=== PATIENT | male | born 1975 | race Caucasian/White ===

== ENCOUNTER 2022-04-05 12:42 | Emergency (ER) | payer OTHER, SELFPAY ==
--- NOTE | ~2022-04-05 | US_ITS ---
EXAMINATION: US venous doppler [facility] DATE: 04/05/2022 18:48 INDICATION: Left lower limb edema. TECHNIQUE: Grayscale ultrasound images without and with compression and Doppler ultrasound images of the left lower extremity veins were obtained. COMPARISON: None. FINDINGS: The visualized portions of left common femoral vein, profunda (deep) femoral vein, femoral vein, popl iteal vein, peroneal veins, posterior tibial veins, and greater saphenous vein outflow are patent. IMPRESSION: 1. No deep venous thrombosis. Reviewed, dictated and finalized at location A. LTY ADMINISTRATOR
--- NOTE | ~2022-04-05 | XR_ITS ---
EXAMINATION: XR chest 2V 04/05/2022 13:12 INDICATION: Chest pain PROCEDURE: 2 view chest COMPARISON: No prior studies for comparison. FINDINGS: The lungs are clear. The cardiomediastinal silhouette is within normal limits. There are no pleural effusions. There is no pneumothorax suspected. IMPRESSION: 1: NO ACUTE CARDIOPULMONARY DISEASE. Reviewed, dictated and finalized at location B. ECTOR GENERAL
[2022-04-05 12:43] VITALS: BP 174/118; PULSE 103; RESP 14; TEMP 36.7; O2SAT 98
--- NOTE | 2022-04-05 12:57 | ECG_ITS ---
Measurements Intervals [place] Rate: 94 P: 50 FL: 191 QRS: 43 QRSD: 108 T: 48 QT: 339 QTc: 425 Interpretive Statements SINUS RHYTHM NORMAL ECG NO PREVIOUS ECG AVAILABLE FOR COMPARISON Electronically Signed On 04-06-2022 14:06:26 BEAN SNIPPER by Wesley Freeman M.D.
[2022-04-05 13:05] LABS: Basophils Absolute Auto 0.1 K/mm3 (0.0-0.1); Basophils Percent Auto 0.7 % (0.2-1.2); Eosinophils Absolute Auto 0.3 K/mm3 (0-0.3); Eosinophils Percent Auto 3.2 % (0-4.4); Hematocrit 44.8 % (42.0-52.0); Hemoglobin 14.9 g/dL (14.0-18.0); Immature Granulocyte Absolute 0.05 K/mm3 (0.00-0.031); Immature Granulocyte Percent A 0.5 % (0-0.5); Lymphocytes Absolute Auto 2.32 K/mm3 (0.9-3.2); Lymphocytes Percent Auto 24.7 % (18.3-44.2); Mean Corpuscular HGB Conc 33.3 g/dl (32-36); Mean Corpuscular Hemoglobin 30.6 pg (26-34); Mean Platelet Volume 9.8 fl (7.4-10.4); Monocytes Absolute Auto 0.8 K/mm3 (0.1-0.6); Monocytes Percent Auto 8.9 % (2.6-8.5); Neutrophils Absolute Auto 5.8 K/mm3 (1.3-6.7); Platelet Count Result 239 k/mm3 (150-375); Red Blood Count 4.87 M/mm3 (4.6-6.20); Red Cell Distribution Width 13.7 % (11.5-14.5); White Blood Count 9.4 K/mm3 (4.5-10.0)
[2022-04-05 13:20] LABS: Alanine Aminotransferase 30 U/L (6-50); Albumin Level 4.6 g/dL (3.5-5.1); Alkaline Phosphatase 82 U/L (38-126); Anion Gap 7 mmol/L (8-16); Aspartate Amino Transferase 30 U/L (17-59); Bilirubin,Total 0.5 mg/dL (0.2-1.3); Blood Urea Nitrogen 17 mg/dL (9-20); Calcium 8.5 mg/dL (8.4-10.2); Carbon Dioxide 25 mmol/L (22-30); Chloride 102 mmol/L (98-107); Estimated CRCL calculation 174 ml/min; Estimated Glomerular Filt Rate > 60; Glucose 106 mg/dL (65-110); Lipase 107 U/L (23-300); Potassium 4.3 mmol/L (3.4-5.0); Sodium 134 mmol/L (137-145)
[2022-04-05 13:31] LABS: Troponin I < 0.012 ng/mL (0.000-0.034)
[2022-04-05 17:09] LABS: Troponin I < 0.012 ng/mL (0.000-0.034)
[2022-04-05 17:30] VITALS: BP 187/100; PULSE 92; RESP 16; O2SAT 96
[2022-04-05 17:38] VITALS: PULSE 88
--- NOTE | 2022-04-05 18:46 | ED.CHESTPAIN ---
HPI - Chest Pain General Chief Complaint: Chest Pain Stated Complaint: Chest pain Time Seen by Provider: 04/05/22 18:20 History of Present Illness HPI narrative: Patient is a 46-year-old male who presents ER with back pain. Right-sided and between the scapula and the spine. Ongoing over the last 2 weeks. Improves if he massages it against a door frame. Mild improvement with anti-inflammatories at times. Is started to worsen and affects his right chest as well as his right arm. Is worse with physical movement and not necessarily with exertion. No fevers chills or sweats. Also reports that he has no edema in his legs. He started a new job where he is up and ambulatory more than he used to be. The left leg has begun to swell despite having history of chronic edema and using his compression socks. Recently moved to the area and does not have a PCP and would like to be evaluated. Related Data Allergies Allergy/AdvReac Type Severity Reaction Status Date / Time No Known Allergies Allergy Verified 04/05/22 17:21 Review of Systems Review of Systems: All systems reviewed & are unremarkable except as noted in HPI and below Constitutional: Constitutional: Denies chills, Denies fatigue and Denies fever(s) ENT: Denies nasal congestion and Denies sore throat Cardiovascular: Cardiovascular: Denies chest pain, Denies rapid heart rate and Denies radiating jaw, neck or arm pain Respiratory: Respiratory: Denies cough and Denies dyspnea Gastrointestinal: Gastrointestinal: Denies abdominal pain, Denies nausea and Denies vomiting Musculoskeletal: Musculoskeletal: Reports back pain, Denies arthralgias and Denies joint swelling Comments: Leg edema PMFSH Past Medical History Medical History (Updated 04/05/22 @ 19:54 by Yandel Villalba MD) Hypertension Surgical History Surgical History (Updated 04/05/22 @ 19:54 by Yandel Villalba MD) No pertinent past surgical history Exam Narrative: GENERAL: Well-appearing, morbidly obese, and in no acute distress. HEAD: Normocephalic, atraumatic. EYES: PERRL and EOMI. ENT: Mucous membranes moist. CHEST: Clear to auscultation. No respiratory distress. HEART: Regular rate and rhythm. Normal peripheral pulses. ABDOMEN: Soft, nontender, nondistended, normal active bowel sounds. Back: No reproducible midline tenderness of the T/L-spine. There is muscle tenderness and spasm located over the rhombus on the right side which reproduces patient's pain. EXTREMITIES: Normal range of motion. 2+ edema with chronic venous stasis changes. NEURO: Alert and oriented x3. PSYCH: Normal mood and affect. Course Course Emergency Course: No DVT on ultrasound. Troponins negative x2 with reassuring EKG and history. Recommend follow-up with PCP and we will give him the name of a local physician. Patient verbalized understanding of treatment plan. Discharged with anti-inflammatories and muscle relaxers. Vital Signs Vital signs: Vital Signs Temperature 98.0 F 04/05/22 12:43 Pulse Rate 103 H 04/05/22 12:43 Respiratory Rate 14 04/05/22 12:43 Blood Pressure 174/118 H 04/05/22 12:43 Pulse Oximetry 98 04/05/22 12:43 Temperature 98.0 F 04/05/22 12:43 Pulse Rate 80 04/05/22 18:59 Respiratory Rate 15 04/05/22 18:59 Blood Pressure 165/109 H 04/05/22 18:59 Pulse Oximetry 97 04/05/22 18:59 MDM - Chest Pain Lab Data 04/05/22 12:58 04/05/22 12:58 Labs: Lab Results 04/05/22 04/05/22 04/05/22 Range/Units 12:58 12:58 12:58 WBC 9.4 (4.5-10.0) K/mm3 RBC 4.87 (4.6-6.20) M/mm3 Hgb 14.9 (14.0-18.0) g/dL Hct 44.8 (42.0-52.0) % MCV 92.0 (80-100) fl MCH 30.6 (26-34) pg MCHC 33.3 (32-36) g/dl RDW 13.7 (11.5-14.5) % Plt Count 239 (150-375) k/mm3 MPV 9.8 (7.4-10.4) fl Immature Gran % (Auto) 0.5 (0-0.5) % Neut % (Auto) 62.0 (45.5-73.1) % Lymph % (Auto) 24.7 (18.3-44.2) % [place] %
[2022-04-05 18:59] VITALS: BP 165/109; PULSE 80; RESP 15; O2SAT 97
== END 2022-04-05 19:17 | disposition home or self-care (01) ==
PROVIDERS: Emergency Provider Emergency Medicine
DX: S29.012A Strain of muscle and tendon of back wall of thorax, initial encounter (principal); I10 Essential (primary) hypertension; R60.0 Localized edema; X58.XXXA Exposure to other specified factors, initial encounter
CPT/HCPCS: 36415; 71046; 80053; 83690; 84484; 85025; 85610; 85730; 93005; 93971; 99284

== ENCOUNTER 2023-09-11 16:24 | Emergency (ER) | payer OTHER, SELFPAY ==
[2023-09-11 16:42] VITALS: BP 149/106; PULSE 101; RESP 16; TEMP 37.8; O2SAT 98
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
== END 2023-09-11 17:17 | disposition left against medical advice (07) ==
PROVIDERS: Emergency Provider Nurse Practitioner; PCP Family Medicine
DX: S20.213A Contusion of bilateral front wall of thorax, initial encounter (principal); V43.52XA Car driver injured in collision with other type car in traffic accident, initial encounter; M79.671 Pain in right foot; F17.220 Nicotine dependence, chewing tobacco, uncomplicated; I10 Essential (primary) hypertension
CPT/HCPCS: 99212; G0463

== ENCOUNTER 2024-09-17 01:14 | Day surgery (SDC) | payer OTHER, SELFPAY ==
[2024-09-07 11:28] VITALS: BMI 49.0
--- OUTSIDE RECORDS SUMMARY | 2024-09-17 01:17 | XMS_ITS | Referral Summary ---
Author Organization [facility] Address [address] [place] [address] Care Team Providers Care Education Analyst Name Role Phone No, Physician Primary Care Provider [phone] Allergies No known active allergies Medications ibuprofen (ADVIL,MOTRIN) 600 mg tablet Take 1 tablet (600 mg total) by mouth every 8 (eight) hours as needed for pain 30 tablet 09/13/2023 Active acetaminophen (TYLENOL) 500 mg tablet Take 1-2 tablets (500-1,000 mg total) by mouth every 6 (six) hours as needed for pain 30 tablet 09/13/2023 Active Active Problems Problem Noted Date Diagnosed Date Displaced fracture of fifth metatarsal bone of r ight foot 10/12/2023 Social History Tobacco Use Types Packs/Day Years Used Date Smoking Tobacco: Never Smokeless Tobacco: Current Tobacco Cessation:Ready to Q uit: Not Asked; Counseling Given: Not Answered Alcohol Use Standard Drinks/Week Comments Yes 0 (1 standard drink = 0.6 oz pur e alcohol) Drinks multiple times per week Personal Safety Answer Date Recorded Have you ever been in or are you currently in a harmful physical or emotional relationship or is someone making you feel afraid or unsafe? Denies 09/12/2023 Sex and Gender Information Value Date Recorded Sex Assigned at Not on file Legal Sex Male 7:50 PM CDT Gender Identity Not on file Sexual Orientation Not on file Last Filed Vital Signs Vital Sign Reading Time Taken Comments Blood Pressure 142/90 09/13/2023 8:00 AM CDT Pulse 84 09/13/2023 8:15 AM CDT Temperature 37 C (98.6 F) 09/13/2023 3:15 AM CDT Respiratory Rate 18 09/13/2023 3:15 AM CDT Oxygen Saturation 96% 09/13/2023 8:15 AM CDT Inhaled Oxygen Concentration - - Weight - - Height - - Body Mass Index - - Plan of Treatment Not on file Insurance Care Teams Education Analyst Relationship Specialty Start Date End Date No, Physician PCP - General 09/13/23
--- OUTSIDE RECORDS SUMMARY | 2024-09-17 01:17 | XMS_ITS | Clinical Summary ---
Author Organization [facility] Address [address] [place] [address] Care Team Providers Care Mining And Quarrying Machinery Repairer Name Role Phone No, Physician Primary Care Provider [phone] Allergies No known active allergies Medications ibuprofen [...] metatarsal bone of r ight foot 10/12/2023 Medical History Medical History Date Comments HTN (hypertension) Social History Tobacco Use Types Packs/Day Years [...] on file Sexual Orientation Not on file Obstetrics History Last Filed Vital Signs Vital Sign Reading [...] Mass Index - - Plan of Treatment Health Maintenance Due Date Last Done Comments Colon Cancer Screening-Colonoscopy 1976 Depression Screening 1976 Hepatitis C Screening 1976 DTaP/Tdap/Td Vaccine (1 - Tdap) 06/15/1987 Hepatitis B Screening 1994 Regular Well Visit/Exam 18-64 1994 Influenza Vaccine (#1) 2024 01/28/2020 Pneumococcal vaccine <65 Aged Out No longer eligible based on patient's age to complete this topic Insurance [facility] CHOICE PLUS Care Teams Mining And Quarrying Machinery Repairer Relationship Specialty Start Date End Date No, Physician PCP - General 09/13/23
--- OUTSIDE RECORDS SUMMARY | 2024-09-17 01:17 | XMS_ITS | Clinical Summary ---
Author Organization [facility] [address] [facility] Address [address] [place] [address] Care Team Providers Care Roustabout Supervisor Name Role Phone Unavailable Primary Care Provider Unavailabl e Allergies Active Allergy Reactions Criticality Noted Date Comments Codeine Nausea and Vomiting Low 10/03/2015 Medications amLODIPine (NORVASC) 10 mg tablet Take 10 mg by mouth daily. 4 Active irbesartan-hyd roCHLOROthiazi de (AVALIDE) 300-12.5 mg tablet Take 1 Tablet by mouth daily. 4 Active cpap infertility medical assistant CPAP @11 cwp with heated humidifier. Length of need:99 months; full face mask with headgear every 6 months; mask only every 3 months; per insurance cushions per month; Tubing non heated 1 every 3 months, water chamber 1 every 6 months, chin strap 1 every 6 months, filters disposable 2 per month, filters reusable 1 per 6 months. Current unit is dysfunctional and is benefiting. 1 Each 4 Active Active Problems Problem Noted Date Diagnosed Date MELIDA (obstructive sleep apnea) 11/22/2023 Encounters Date Type Department Care Team Description 07/17/2024 External Device Data [facility] ABSTRACTION Provider, Abstract 07/04/2024 External Device Data [facility] ABSTRACTION Provider, Abstract 07/03/2024 External Device Data [facility] ABSTRACTION Provider, Abstract from Last 3 Months Social History Tobacco Use Types Packs/Day Years Used Date Smoking Tobacco: Never Smokeless Tobacco: Current Chew Tobacco Cessation:Ready to Q uit: Not Asked; Counseling Given: Not Answered Alcohol Use Standard Drinks/Week Comments Yes 12 (1 standard drink = 0.6 oz pu re alcohol) Sex and Gender Information Value Date Recorded Sex Assigned at Not on file Legal Sex Male 8:16 AM CDT Gender Identity Not on file Sexual Orientation Not on file Last Filed Vital Signs Vital Sign Reading Time Taken Comments Blood Pressure 152/84 11/22/2023 10:24 AM CDT Pulse 79 11/22/2023 10:24 AM CDT Temperature - - Respiratory Rate 18 11/22/2023 10:24 AM CDT Oxygen Saturation 95% 11/22/2023 10:24 AM CDT Inhaled Oxygen Concentration - - Weight 157.9 kg (348 lb) 11/22/2023 10:24 AM CDT Height 177.8 cm (5' 10) 11/22/2023 10:24 AM CDT Body Mass Index 49.93 11/22/2023 10:24 AM CDT Plan of Treatment Health Maintenance Due Date Last Done Comments Pre-Diabetes and Diabetes Screening 1976 HEPATITIS B VACCINES (1 of 3 - 19+ 3-dose series) 06/15/1995 COLORECTAL SCREENING 2021 Colorectal Cancer Screening 2021 FIT-DNA Q 3 years 2021 FIT/FOBT Q 1 year 2021 Flex Sig/CT Colonography Q 5 years 2021 INFLUENZA VACCINE (#1) 2024 01/28/2020, 2019 DTAP/TDAP/TD VACCINES (2 - Td or Tdap) 02/17/2025
--- NOTE | 2024-09-17 07:19 | WPDANESEPPF ---
Anes - Initial Pre Proc Eval Procedure: Operation Date: 09/17/24 08:30 Proposed Procedures p Screening Colonoscopy - Braulio Brown MD Date/Time: 09/17/24 07:19 Surgeon: Braulio Brown MD Pre Op Diagnosis: Encounter for screening for malignant neoplasm of Patient Data Age: 49 Gender: M Height: 1.78 m Weight: 155 kg Allergies Allergy/AdvReac Type Severity Reaction Status Date / Time No Known Allergies Allergy Verified 09/17/24 07:22 Home Medications ?Medication ?Instructions ?Recorded ?Confirmed ?Type irbesartan 300 1 tablet PO DAILY #90 tabs 04/02/24 09/17/24 Rx mg-hydrochlorothiazide 12.5 mg tablet testosterone cypionate 200 mg/mL 200 mg IM WEEKLY #10 mL 04/02/24 09/07/24 Rx intramuscular oil amlodipine 10 mg tablet 10 mg PO QPM #90 tabs 08/10/24 09/17/24 Rx Patient hx anesthesia problems: none Family hx anesthesia problems: none Results Review: All pre-operative results and documents have been reviewed as part of the pre-operative evaluation. [facility] Past Medical History Medical History (Updated 09/17/24 @ 07:19 by Ankur Ba DO) Alcohol abuse Obstructive sleep apnea Hypertension Surgical History Surgical History No pertinent past surgical history Family History Family History Father Alcoholism in family Mother Diabetes mellitus Other Depression Social History Social History Social History: Years smoked: 30 Smoking status: Smoker, status unknown (chewing tobacco) Tobacco type: smokeless tobacco Smokeless tobacco user: chewing tobacco Alcohol intake: current Drinks per week: 12 Substance use: never Substance use type: does not use Do You Feel Safe in your Home?: Yes Lack of Transportation: No Lack of Food: Never True Current Housing: I Have Housing Concerned About Future Housing: No Difficulty Paying Gas/Electric Bills: No Difficulty Paying for Meds: No Currently Unemployed: No Education: Don't Know Difficulty w/ Childcare or Family Care: No Living arrangements: alone Occupation/Education: unemployed Gender identity (if verbalized by the patient): Male Sexual Orientation (if Verbalized by the Patient): Straight or Heterosexual Anes - Eval Final PreProcedure Day of Procedure 09/17/24 07:19 Patient weight: morbidly obese Heart: regular rate and rhythm Lungs: clear to auscultation Airway: Mallampati scale class II Neurological: alert and oriented Last oral intake: >/= 8 hours ASA classification: III Emergent: no Anesthetic plan: proceed Anesthesia type and monitoring: general GIVS and standard monitoring Results Review: All pre-operative results and documents have been reviewed as part of the pre-operative evaluation. Informed Consent: The patient's anesthetic plan and its attendant risks and benefits were discussed with the patient/family/POA. Questions were solicited and answers provided to the satisfaction of the patient/family/POA.
[2024-09-17 07:23] VITALS: BP 137/86; RESP 17; TEMP 36.8; O2SAT 94; BMI 49.9
[2024-09-17] MEDS: LACTATED RINGERS 1,000 ML 150 ML IV CONT (07:31)
--- NOTE | 2024-09-17 08:17 | P.HP_ITS ---
H&P: HPI History of Present Illness Date/Time: 09/17/24 08:17 Chief Complaint: Screening colonoscopy Narrative: This is the patient's first colonoscopy. There are no GI symptoms and there is no family history of colorectal cancer. Review of Systems Review of Systems: All systems reviewed & are unremarkable except as noted in HPI and below PMFSH Past Medical History Medical History (Updated 09/17/24 @ 07:19 by Ankur Ba DO) Alcohol abuse Obstructive sleep apnea Hypertension Surgical History Surgical History No pertinent past surgical history Family History Family History Father Alcoholism in family Mother Diabetes mellitus Other Depression Social History Social History Social History: Years smoked: 30 Smoking status: Smoker, status unknown (chewing tobacco) Tobacco type: smokeless tobacco Smokeless tobacco user: chewing tobacco Alcohol intake: current Drinks per week: 12 Substance use: never Substance use type: does not use Do You Feel Safe in your Home?: Yes Lack of Transportation: No Lack of Food: Never True Current Housing: I Have Housing Concerned About Future Housing: No Difficulty Paying Gas/Electric Bills: No Difficulty Paying for Meds: No Currently Unemployed: No Education: Don't Know Difficulty w/ Childcare or Family Care: No Living arrangements: alone Occupation/Education: unemployed Gender identity (if verbalized by the patient): Male Sexual Orientation (if Verbalized by the Patient): Straight or Heterosexual Meds Home Medications and Allergies Home Medications ?Medication ?Instructions ?Recorded ?Confirmed ?Type irbesartan 300 1 tablet PO DAILY #90 tabs 04/02/24 09/17/24 Rx mg-hydrochlorothiazide 12.5 mg tablet testosterone cypionate 200 mg/mL 200 mg IM WEEKLY #10 mL 04/02/24 09/07/24 Rx intramuscular oil amlodipine 10 mg tablet 10 mg PO QPM #90 tabs 08/10/24 09/17/24 Rx Allergies Allergy/AdvReac Type Severity Reaction Status Date / Time No Known Allergies Allergy Verified 09/17/24 07:22 Vital Signs Vital Signs - 24 hr 09/17/24 07:23 Temperature 98.2 F Respiratory Rate 17 Blood Pressure 137/86 Pulse Oximetry 94 Oxygen Delivery Room Air Exam Const: General: cooperative and healthy appearing Resp: Effort & Inspection: normal respiratory effort and able to speak in complete sentences Auscultation: clear to auscultation bilaterally Cardio: Rate: regular rate Rhythm: regular rhythm GI: Inspection: normal to inspection GI Palp: No No hepatosplenomegaly pres ent Auscultation: normal bowel sounds Rectal Exam: deferred Skin: General skin exam: normal color Psych: Appearance: grossly normal Mental Status: mental status grossly normal Assessment and Plan Assessment and plan (1) Colon cancer screening: Code(s): Z12.11 - Encounter for screening for malignant neoplasm of colon Status: Acute Assessment and Plan: The patient is deemed a good candidate for the procedure. Consent signed. Will proceed.
[2024-09-17 08:41] VITALS: BP 93/51; PULSE 94; RESP 18; O2SAT 94
[2024-09-17 08:51] VITALS: BP 98/58; PULSE 86; RESP 18; O2SAT 97
[2024-09-17 09:01] VITALS: BP 103/68; PULSE 82; RESP 18; O2SAT 96
== END 2024-09-17 09:05 | disposition home or self-care (01) ==
PROVIDERS: PCP Family Medicine; Referring Provider Student in an Organized Health Care Education/Training Program; Visit Provider Internal Medicine Gastroenterology
PROC: 0DJD8ZZ Inspection of Lower Intestinal Tract, Via Natural or Artificial Opening Endoscopic (ICD-10-PCS; CPT 45378; principal; 2024-09-17 08:30)
DX: Z12.11 Encounter for screening for malignant neoplasm of colon (principal); K64.8 Other hemorrhoids; K57.30 Diverticulosis of large intestine without perforation or abscess without bleeding; I10 Essential (primary) hypertension; G47.33 Obstructive sleep apnea (adult) (pediatric); F17.220 Nicotine dependence, chewing tobacco, uncomplicated; E66.01 Morbid (severe) obesity due to excess calories; Z68.42 Body mass index [BMI] 45.0-49.9, adult
CPT/HCPCS: 45378; J2003; J2704; J7120